=== PATIENT | female | born 1955 | race Caucasian/White ===

== ENCOUNTER 2022-02-03 07:32 | Outpatient (CLI) | payer BC, SELFPAY ==
[2022-02-03 11:32] LABS: Cholesterol* 223 mg/dL (90-199); HDL Cholesterol* 80 mg/dL (>=50); LDL Cholesterol Calculated 125 mg/dL (<100); Triglycerides* 90 mg/dL (40-149)
[2022-02-03 11:48] LABS: Vitamin D 25 Hydroxy* 41 ng/mL (30-80)
== END 2022-02-03 07:33 | disposition home or self-care (01) ==
LOC: NFLDREF 07:32
PROVIDERS: PCP Internal Medicine; Visit Provider Internal Medicine
DX: E78.5 Hyperlipidemia, unspecified (principal); M81.0 Age-related osteoporosis without current pathological fracture
CPT/HCPCS: 80061; 82306

== ENCOUNTER 2022-02-10 08:19 | Outpatient (CLI) | payer BC, SELFPAY | END 2022-02-10 08:20 | disposition home or self-care (01) | LOC: NFLDREF 08:19 | PROVIDERS: PCP Internal Medicine; Visit Provider Internal Medicine | DX: E78.5 Hyperlipidemia, unspecified (principal); M81.0 Age-related osteoporosis without current pathological fracture; Z12.4 Encounter for screening for malignant neoplasm of cervix | CPT/HCPCS: 87624; 88175 ==

== ENCOUNTER 2022-04-22 15:39 | Outpatient (CLI) | payer BC, SELFPAY ==
--- NOTE | 2022-04-22 15:40 | CRLHL7_ITS ---
For Patients: As a result of the Century Cures Act, medical imaging exams and procedure reports are released immediately into your electronic medical record. You may view this report before your referring provider. If you have questions, please contact your health care provider. BILATERAL SCREENING MAMMOGRAM WITH COMPUTER-AIDED DETECTION AND TOMOSYNTHESIS TECHNIQUE: CC and MLO views were obtained. These mammographic images have been obtained using full-field digital technique. These mammographic images were interpreted with the benefit of computer-aided detection. Breast Tomosynthesis was used in this interpretation. COMPARISON FILM: 04/19/2021, 06/01/2020, 02/26/2018. FINDINGS: The breasts are heterogeneously dense, which may obscure small masses IMPRESSION: There is no radiographic evidence for malignancy. ASSESSMENT: BI-RADS Category 1: Negative RECOMMENDATION: Routine screening mammogram in 1 year. A lay language report of this examination will be provided to the patient. Jonh Conn M.D. Diagnostic Radiologist [email or web address] KATERINA/[email or web address] Transcribed: 7:25 p.m. CALE/Dictated by: Jonh Conn MD @ 04/23/2022 11:29:00 AM (Electronically Signed)
--- OUTSIDE RECORDS SUMMARY | 2022-04-22 16:06 | XMS_ITS | Encounter Summary ---
:1955 Author Organization [facility] Address [address] [place] [address] Care Team Providers Name Role Phone Unavailable Primary Care Provider Unavailable Reason for Visit Reason Comments Appointment Pre-visit Testing Orders Encounter Details Date Type Department Care Team Description 07/12/2021 Clinical Department of Provider, Appointment; Communication Ophthalmology in Unknown Pre-visit Testing Monitor, [place] Orders [address] [place] [address] Social History Tobacco Use Types Packs/Day Years Used Date Smoking Tobacco: Never Alcohol Habits Answer Date Recorded How often do you have a drink containing alcohol? 2-3 times a week 02/28/2022 How many drinks containing alcohol do you have on a 1 or 2 02/28/2022 typical day when you are drinking? How often do you have six or more drinks on one Never 02/28/2022 occasion? Social Isolation Answer Date Recorded In a typical week, how many times do you Twice a week 02/28/2022 talk on the phone with family, friends, or neighbors? How often do you get together with friends Once a week 02/28/2022 or relatives? How often do you attend rastafarian or buddhist More than 4 time s per year 02/28/2022 services? Do you belong to any clubs or organizations Yes 02/28/2022 such as rastafarian groups, unions, fraternal or athletic groups, or school groups? How often do you attend meetings of the More than 4 times pe r year 02/28/2022 clubs or organizations you belong to? Are you now , , , 02/28/2022 , never or living with a partner? Physical Activity Answer Date Recorded On average, how many days per week do you engage in moderate to 6 days 02/28/2022 strenuous exercise (like walking fast, running, jogging, dancing, swimming, biking, or other activities that cause a light or heavy sweat)? On average, how many minutes do you engage in exercise at th is 30 min 02/28/2022 level? Stress Answer Date Recorded Do you feel stress - tense, restless, nervous, or Only a lit tle 02/28/2022 anxious, or unable to sleep at night because your mind is troubled all the time - these days? Financial Resource Strain Answer Date Recorded How hard is it for you to pay for the very basics like Not h ely at all 02/28/2022 food, housing, medical care, and heating? Intimate Partner Violence Answer Date Recorded Within the last year, have you been afraid of your partner o r No 02/28/2022 ex-partner? Within the last year, have you been humiliated or emotionall y No 02/28/2022 abused in other ways by your partner or ex-partner? Within the last year, have you been kicked, hit, slapped, or No 02/28/2022 otherwise physically hurt by your partner or ex-partner? Within the last year, have you been raped or forced to have any No 02/28/2022 kind of sexual activity by your partner or ex-partner? Food Insecurity Answer Date Recorded Within the past 12 months, you worried that your food would Never true 02/28/2022 run out before you got money to buy more. Within the past 12 months, the food you bought just didn't N ever true 02/28/2022 last and you didn't have money to get more. Transportation Needs Answer Date Recorded In the past 12 months, has lack of transportation kept you f rom No 02/28/2022 medical appointments or from getting medications? In the past 12 months, has lack of transportation kept you f rom No 02/28/2022 meetings, work, or getting things needed for daily living? Housing Stability Answer Date Recorded In the last 12 months, was there a time when you were not ab le No 02/28/2022 to pay the mortgage or rent on time? In the last 12 months, how many places have you lived? 1 02/28/2022 In the last 12 months, was there a time when you did not hav e a No 02/28/[address] or slept in a long term (including now)? Education Answer Date Recorded What is the highest level of school you have completed or th e Doctorate 01/06/2020 highest degree you have received? Sex Assigned at Date Recorded Female 01/06/2020 8:22 PM CDT documented as of this encounter Miscellaneous Notes Telephone Encounter - Salima Fernandez - 07/15/2021 3:23 PM CST Patient has been schedule I did call and left msg/sent portal msg. T RESPONDER Telephone Encounter - Fernanda Lino - 07/12/2021 5:01 PM CST Thank you Ammy. Not sure why this was not looked at sooner. Please advise who should see at this point. Thank you T RESPONDER Telephone Encounter - Ammy Silva - 07/12/2021 4:23 PM CST Yaquelin Eldridge, Dermatology had called us about this order and its been placed since January, not in our WQ- Only thing that had me concerned is the indication in the order. Thank you- Ammy T RESPONDER documented in this encounter Plan of Treatment Not on filedocumented as of this encounter Visit Diagnoses Not on filedocumented in this encounter
--- OUTSIDE RECORDS SUMMARY | 2022-04-22 16:06 | XMS_ITS | Encounter Summary ---
:1955 Author Organization [facility] Address [address] [place] [address] Care Team Providers Name Role Phone Unavailable Primary Care Provider Unavailable Reason for Visit Reason Comments Phone Contact Encounter Details Date Type Department Care Team Description 07/15/2021 Clinical Communication Department of Diana, Eufemia Montilla [facility] [place], [place] [address] [facility] [address] [place] [phone] Social History Tobacco Use Types Packs/Day Years [...] or relatives? How often do you attend religion or sikh More than 4 time s per year 02/28/2022 services? Do you belong to any clubs or organizations Yes 02/28/2022 such as religion groups, unions, fraternal or athletic groups, or [...] place to sleep or slept in a chcf (including now)? Education Answer Date Recorded What is the highest level of school you have completed or th e Doctorate 01/06/2020 highest degree you have received? Sex Assigned at Date Recorded Female 01/06/2020 8:22 PM CDT documented as of this encounter Miscellaneous Notes Telephone Encounter - Salima Fernandez - 07/15/2021 3:20 PM CST Please confirm patient appt for 09/10. documented in this encounter Plan of Treatment Not on filedocumented as of this encounter Visit Diagnoses Not on filedocumented in this encounter
--- OUTSIDE RECORDS SUMMARY | 2022-04-22 16:06 | XMS_ITS | Encounter Summary ---
:1955 Author Organization [facility] Address [address] [place] [address] Care Team Providers Name Role Phone Unavailable Primary Care Provider Unavailable Encounter Details Date Type Department Care Team Description 02/27/2020 Orders Only Department of Family Medicine, Unassigned , Pcp [facility], in [place], [place] [address] [place] [address] Social History Tobacco Use Types Packs/Day Years [...] or relatives? How often do you attend pentecostalism or muslim More than 4 time s per year 02/28/2022 services? Do you belong to any clubs or organizations Yes 02/28/2022 such as pentecostalism groups, unions, fraternal or athletic groups, or [...] place to sleep or slept in a alf (including now)? Education Answer Date Recorded What is the highest level of school you have completed or th e Doctorate 01/06/2020 highest degree you have received? Sex Assigned at Date Recorded Female 01/06/2020 8:22 PM CDT documented as of this encounter Plan of Treatment Not on filedocumented as of this encounter Visit Diagnoses Not on filedocumented in this encounter
--- OUTSIDE RECORDS SUMMARY | 2022-04-22 16:06 | XMS_ITS | Clinical Summary ---
:1955 Author Organization [facility] Address [address] [place] [address] Care Team Providers Name Role Phone Unavailable Primary Care Provider Unavailable Source Comments Patient records contain information from all sites at [facility]. For routine questions regarding patient records, call [phone] during business hours, M-F 8:00 AM - 5:00 PM Central Time. Record requests for emergency care only can be directed to [phone] at any time.[facility] Allergies Active Allergy Reactions Severity Noted Date Comments Acetaminophen Headache Medium 04/06/2017 Ampicillin Hives 01/31/2010 Hydrocodone Headache Medium 04/06/2017 Penicillin V Hives High 04/06/2017 Sulfa (Sulfonamide Other (see comments) High 01/31/2010 S evere adverse Antibiotics) reaction Medications Medication Sig Dispensed Refills Start Date End Date Status calcipotriene Apply 1 application 60 g 1 02/24/2020 Active (Dovonex) 0.005 % topically 2 (two) cream times a day as needed (Rash). For 4-7 days in combination with Efudex. fluorouraciL (EFUDEX) Apply 1 application 40 g 0 02/24/20 20 Active 5 % cream topically 2 (two) times a day. In combination with Dovonex for 4-7 days fexofenadine Take 1 tablet by 0 01/31/2010 Active (KINSEY) 180 mg mouth as needed. tablet calcium Take 1 tablet by 0 01/31/2010 Ac tive carbonate/vitamin D3 mouth 3 (three) (CALCIUM 500 + D times a day. ORAL) alendronate (FOSAMAX) Take 1 tablet by 0 03/05/2021 Active 70 mg tablet mouth daily. ibuprofen Take 1 tablet by 0 Act serene (ADVIL,MOTRIN) 200 mg mouth as needed. tablet simvastatin (ZOCOR) Take 10 mg by mouth 0 02/17/2019 Active 10 mg tablet at bedtime. Encounters Date Type Specialty Care Team Description 02/28/2022 Office Visit Dermatology Jaimee Luz Nev corine Multiple (Primary Dx); M.B.B.S. Dermatoheliosis ; Acrochordon from Last 3 Months Social History Tobacco Use Types Packs/Day Years [...] or relatives? How often do you attend episcopal or oriental orthodox More than 4 time s per year 02/28/2022 services? Do you belong to any clubs or organizations Yes 02/28/2022 such as episcopal groups, unions, fraternal or athletic groups, or [...] place to sleep or slept in a fci (including now)? Education Answer Date Recorded What is the highest level of school you have completed or th e Doctorate 01/06/2020 highest degree you have received? Sex Assigned at Date Recorded Female 01/06/2020 8:22 PM CDT Plan of Treatment Health Maintenance Due Date Last Done Comments Bone Density Scan (Osteoporosis 1955 Screen) CT Colonography 1955 Cologuard 1955 Colonoscopy 1955 Colorectal Cancer Screening 1955 FIT 1955 Fasting Glucose for Diabetes 1955 Screening HIV Screening 1955 Hepatitis C Screening 1955 Mammogram 1955 Depression Screening (Annual 06/29/2021 PHQ-2) COVID-19 Vaccine (5 - Booster for 12/27/2021 11/01/2021, , Pfizer series) 10/23/2020, Additional history exists Pneumococcal vaccine (65+ years) 02/10/2023 02/10/2022 (2 - PPSV23 if available, else PCV20) Cervical Cancer Screening 02/10/2025 02/10/2022 DTaP,Tdap,and Td Vaccines (2 - Td 02/12/2027 02/12/2017 or Tdap) Zoster Vaccines Completed 05/31/2020, 02/06/2020, 02/12/2017 Fall Risk Screen (Annual) Completed 09/10/2021 Influenza Vaccine Completed 04/09/2022, 04/11/2021, 04/12/2020, Additional history exists Insurance Payer Benefit Plan Subscriber ID Effective Dates Phone Address Type / Group [employer] [facility] [id number] 2019-Ben [phone] [address] [address] PPO [facility] [address] [place] [address]
--- OUTSIDE RECORDS SUMMARY | 2022-04-22 16:06 | XMS_ITS | Encounter Summary ---
:1955 Author Organization [facility] Address [address] [place] [address] Care Team Providers Name Role Phone Unavailable Primary Care Provider Unavailable Reason for Visit Reason Comments COVID Nurse Line Encounter Details Date Type Department Care Team Description 12/02/2019 Clinical Communication Department of LUZ Cooper Nurse Line Dermatology in [place], [place] [address] [place] [address] Social History Tobacco Use Types Packs/Day Years [...] or relatives? How often do you attend denominational or anabaptism More than 4 time s per year 02/28/2022 services? Do you belong to any clubs or organizations Yes 02/28/2022 such as denominational groups, unions, fraternal or athletic groups, or [...] place to sleep or slept in a half-way (including now)? Sex Assigned at Date Recorded Female 01/06/2020 8:22 PM CDT documented as of this encounter Miscellaneous Notes Telephone Encounter - Yi Doran - 12/02/2019 2:46 PM CDT In the past 30 days have you had a swab for COVID that tested positive? no Route reply to: Scheduling Contact Number: {Dept Phone Number documented in this encounter Plan of Treatment Not on filedocumented as of this encounter Visit Diagnoses Not on filedocumented in this encounter
--- OUTSIDE RECORDS SUMMARY | 2022-04-22 16:06 | XMS_ITS | Encounter Summary ---
:1955 Author Organization [facility] Address [address] [place] [address] Care Team Providers Name Role Phone Unavailable Primary Care Provider Unavailable Encounter Details Date Type Department Care Team Description 02/05/2021 Ancillary Procedure Department of Dermatology Social History Tobacco Use Types Packs/Day Years [...] or relatives? How often do you attend restorationist or worship More than 4 time s per year 02/28/2022 services? Do you belong to any clubs or organizations Yes 02/28/2022 such as restorationist groups, unions, fraternal or athletic groups, or [...] or slept in a half-way (including now)? Education Answer Date Recorded What is the highest level of school you have completed or th e Doctorate 01/06/2020 highest degree you have received? Sex Assigned at Date Recorded Female 01/06/2020 8:22 PM CDT documented as of this encounter Plan of Treatment Not on filedocumented as of this encounter Procedures Procedure Name Priority Date/Time Associated Comments Diagnosis DERMATOLOGY IMAGE Routine 02/05/2021 12:00 Result s for this EXAM AM CDT procedure are i n the results section. documented in this encounter Results Eyes-Dermatology Image Exam (02/05/2021 12:00 AM CDT) Specimen (Source) Anatomical Location Collection Method / Collectio n Time Received Time / Laterality Volume Narrative IIMS - 02/05/2021 2:57 PM CDT This order has been created and auto-finalized to support the import of images acquired without order. The clini natalya documentation to support these images can be found on the encounter delilah t produced images. Provider Not In System IMG NON RAD IMAGING PROCEDUR ES Performing Organization Address City/State/ZIP Code Phon e Number IIMS IIMS NA documented in this encounter Visit Diagnoses Not on filedocumented in this encounter
--- OUTSIDE RECORDS SUMMARY | 2022-04-22 16:06 | XMS_ITS | Encounter Summary ---
:1955 Author Organization [facility] Address [address] [place] [address] Care Team Providers Name Role Phone Unavailable Primary Care Provider Unavailable Reason for Visit Reason Comments COVID Inquiry Encounter Details Date Type Department Care Team Description 01/10/2020 Clinical Communication Department of Oscar Napoles COV ID Inquiry Dermatology in [place]. [place], [place] [address] [place] [address] Social History Tobacco Use Types Packs/Day Years [...] or relatives? How often do you attend worship or faith More than 4 time s per year 02/28/2022 services? Do you belong to any clubs or organizations Yes 02/28/2022 such as worship groups, unions, fraternal or athletic groups, or [...] place to sleep or slept in a halfway (including now)? Education Answer Date Recorded What is the highest level of school you have completed or th e Doctorate 01/06/2020 highest degree you have received? Sex Assigned at Date Recorded Female 01/06/2020 8:22 PM CDT documented as of this encounter Miscellaneous Notes Telephone Encounter - Isa Perez - 01/10/2020 12:58 PM CDT ([facility] and [facility] locations only: If the patient is not having symptoms and is requesting COVID-19 Nasal Swab testing only, use the process listed in the COVID-19 Patient Requesting COVID PCR Test OTG COVID-19 [place] Patient Requesting COVID PCR Test). 1. Do you have a pending COVID test because you had symptoms or exposure to someone with COVID or you have tested positive for COVID in the last 30 days? no 2. In the past 14 days, do you, anyone in the household, or anyone you have had prolonged exposure have any of the following? a. Fever greater than or equal to 37.8 C (100.0 F)? no b. New symptoms (Specifically: headache, cough, shortness of breath, respiratory distress, sore throat, diarrhea, nausea, vomiting, chills and repeated shaking with chills, myalgia's (muscle aches), loss of smell, or change or loss of taste sensation)? no c. Had close contact with a patient with known or possible COVID-19 in the last 14 days? no Route reply to: kathy wilde desk Scheduling Contact Number: [phone] documented in this encounter Plan of Treatment Not on filedocumented as of this encounter Visit Diagnoses Not on filedocumented in this encounter
--- OUTSIDE RECORDS SUMMARY | 2022-04-22 16:06 | XMS_ITS | Clinical Summary ---
:1955 Author Organization [facility] [place] [address] Care Team Providers Name Role Phone Clinic, No Pcp Or Primary Care Provider Unavailable Allergies Active Allergy Reactions Severity Noted Date Comments Ampicillin Hives 03/06/2021 Sulfa (Sulfonamide Other - Describe In 03/06/2021 Se kapil adverse Antibiotics) Comment Field reaction Medications Medication Sig Dispensed Refills Start Date End Date Status simvastatin (ZOCOR) 10 Take 10 mg by 0 01/24/2021 Active mg tablet mouth at bedtime. alendronate (FOSAMAX) Take 1 Tablet by 0 03/05/2021 Active 70 mg tablet mouth once a week in the morning. Active Problems Not on file Encounters Date Type Specialty Care Team Description 02/10/2022 Lab Requisition Bruna Brooks MD from Last 3 Months Family History Medical History Relation Name Comments Other Father neurological dis order Hyperlipidemia Mother Hypertension Mother Relation Name Status Comments Father Alive Mother Social History Tobacco Use Types Packs/Day Years Used Date Never Smoker Smokeless Tobacco: Never Used Tobacco Cessation: Counseling Given: Yes Sex Assigned at Date Recorded Not on file Obstetrics History Last Filed Vital Signs Vital Sign Reading Time Taken Comments Blood Pressure 98/65 03/06/2021 1:41 PM CDT tower Pulse 80 03/06/2021 1:41 PM CDT Temperature - - Respiratory Rate - - Oxygen Saturation 97% 03/06/2021 1:41 PM CDT Inhaled Oxygen Concentration - - Weight 56.2 kg (124 lb) 03/06/2021 1:41 PM CDT Height - - Body Mass Index - - Plan of Treatment Health Maintenance Due Date Last Done Comments COVID-19 vaccine series (#1) 1955 Tdap 01/21/1968 Depression screening for age 12+ 1969 BMI (ht and wt on same day) for 1975 age 18+ Hepatitis C screening for age 0701/20/1975 18-79 Tetanus booster 1977 Colonoscopy through age 75 2002 Lipids for age 45-75 2002 Mammogram for age 45-75 2002 Zoster (shingles) series for age 0701/20/2007 50+ (1 of 2) DEXA/DXA scan for age 65+ 2022 Pneumococcal series for age 65+ (1 2022 - PCV) Influenza for age 65+ 02/27/2022 Pap test for age 21-65 02/10/2025 02/10/2022, 02/10/2022, 02/12/2017, Additional history exists Procedures Procedure Name Priority Date/Time Associated Diagnosis Comme nts LAB TRACKING EVENT Routine 02/10/2022 8:30 AM CDT HEARING CARE PROFESSIONAL THIN PREP PAP Routine 02/10/2022 8:30 AM Resu lts for this SCREEN IMAGED CDT procedure are in the results section. HPV THIN PREP Routine 02/10/2022 8:30 AM Results for this CDT procedure are i n the results section. from Last 3 Months Results LAB TRACKING EVENT (02/10/2022 8:30 AM CDT) Specimen Anatomical Collection Method Collection Time Receive d Time (Source) Location / / Volume Laterality Other (Other) Client Collect / 02/10/2022 8:30 AM 01/27 4:30 Unknown CDT PM CDT Bruna Brooks MD LAB BILL ONLY Performing Organization Address City/State/ZIP Code Phon e Number [facility] [address] [place] [address] LABORATORY-CENTRAL 2000 LABORATORY HEARING CARE PROFESSIONAL THIN PREP PAP SCREEN IMAGED (02/10/2022 8:30 AM CDT) Component Value Ref Test Analysis Performed At [facility] Range Method Time Signature Case Report Gynecologic Cytology Report ? Case: [id number] ? 02/24/2022 DONTE Authorizing Provider: ??Helg en, Bruna E, MD ?Collected: ? 02/10/2022 0830 ? 5:06 PM HEALTH Ordering Location: ? [facility] CENTRAL LAB ?Received: ?02/10/2022 1757 ? CDT [place] BORATORY-C First Screen: ? Emanuel Mcwilliams ? ENTRAL Rescreen: ?Denise Vlilalpando ? LABORATORY Specimen: ?HEARING CARE PROFESSIONAL ThinPrep Vial Screening, Cervical ? INTERPRETATI NEGATIVE FOR (none) 02/24/2022 [facility] Yulia ctronically ON/RESULT INTRAEPITHELIAL 5:06 PM HEALTH sign ed by LESION OR CDT LABORATORY-C Denise Villalpando on MALIGNANCY (NIL) ENTRAL 01/28 at LABORATORY 5:06 PM SPECIMEN Satisfactory for evaluation 02/24/2022 A [facility] ADEQUACY Endocervical cells cannot be evaluated due to severe atrop hy 5:06 PM HEALTH Scant cellularity CDT LABORATORY-C ENTRAL LABORATORY HPV REQUEST HPV and PAP 02/24/2022 [facility] 5:06 PM HEALTH CDT LABORATORY-C ENTRAL LABORATORY Last Pap 02/12/2017 02/24/2022 [facility] Date 5:06 PM HEALTH CDT LABORATORY-C ENTRAL LABORATORY Last Pap 02/24/2022 [facility] Result 5:06 PM HEALTH T LABORATORY-C ENTRAL LABORATORY Comment: normal Abnormal Pap or [place] No 02/24/2022 5:06 PM [facility] Bx in last 5 years CDT LABORATORY- CENTRAL LABORATORY Menstrual Status Postmenopausal 02/24/2022 5:06 PM [facility] [place] Bx Done Today No 02/24/2022 5:06 PM [facility]ORY Additional 02/24/2022 5:06 PM [facility] Information T LABORATORY-CENTRAL LABORATORY Comment: Interpreted at [facility], Central Laboratory - [address], [place] [address] Automated Review Successful 02/24/2022 5:06 PM T [facility] LABORATORY-CENTRAL L ABORATORY Comment: Specimen processed successfully by automated underpresser hand device, SpectralmindPrep Imaging System, [employer] ANCILLARY TESTING HPV Ordered, 02/24/2022 5:06 PM [facility] HEARING CARE PROFESSIONAL Please see T LABORATORY-CENTRAL separate report LABORATORY Note The pap test is a 02/24/2022 5:06 PM [place] [facility] screening T LABORATORY-CENTRAL technique, not a LABORATORY diagnostic procedure. It is used primarily to screen for squamous cancers and precursor lesions. Published studies have shown that it is subject to both false negative and false positive results. The pap test should not be used as the sole means to diagnose or exclude pre-malignant and malignant lesions. Specimen Anatomical Collection Method Collection Time Receive d Time (Source) Location / / Volume Laterality Other (Cervical) 02/10/2022 8:30 AM 02/10 5:57 CDT PM CDT Bruna Brooks MD PATHOLOGY/CYTOLOGY Performing Organization Address City/State/ZIP Code Phon e Number [facility] [address] [place] [address] LABORATORY-CENTRAL 2000 LABORATORY HPV HIGH RISK (02/10/2022 8:30 AM CDT) Analysis Performed At [facility] logist Time Signature TYPE 16 Negative Negative 02/12/2022 [facility] 3:10 PM CDT LABORATORY-ANGEL TRAL LABORATORY TYPE 18 Negative Negative 02/12/2022 [facility] 3:10 PM CDT LABORATORY-ANGEL TRAL LABORATORY OTHER HIGH Negative Negative 02/12/2022 [facility] RISK TYPES 3:10 PM CDT LABORATORY-ANGEL TRAL LABORATORY Specimen Anatomical Collection Method Collection Time Receive d Time (Source) Location / / Volume Laterality Other (Cervical) 02/10/2022 8:30 AM 02/10 5:57 CDT PM CDT Narrative [facility] LABORATORY-CENTRAL LABORAT ORY - 02/12/2022 3:10 PM CDT HPV types 16, 18, 31, 33, 35, 39, 45, 51, 52, 56, 58, 59, 66 and 68 DNA were undetectable or below the pre-set threshold. Methodology: Talk[employer] 4800 HPV Test Bruna Brooks MD MICROBIOLOGY Performing Organization Address City/State/ZIP Code Phon e Number [facility] [address] 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
--- OUTSIDE RECORDS SUMMARY | 2022-04-22 16:06 | XMS_ITS | Encounter Summary ---
:1955 Author Organization [facility] Address [address] [place] [address] Care Team Providers Name Role Phone Unavailable Primary Care Provider Unavailable Reason for Referral Medication Prior Authorization (Routine) - Closed Specialty Diagnoses / Procedures Referred By Contact Refer red To Contact Brisa Thompson M.D. [address] [place] [phone] Referral ID Status Reason Start Date Expiration Date Visits Requ ested Visits Authorized [id number] Closed 1 1 Reason for Visit Outpatient (Routine) - Closed Specialty Diagnoses / Procedures Referred By Contact Refer jo-ann To Contact Dermatology Jonh Underwood M.D . [facility] [address] [place] [phone] Referral ID Status Reason Start Date Expiration Date Visits Requ ested Visits Authorized [id number] Closed 01/11/2020 01/10/2021 1 1 Encounter Details Date Type Department Care Team Description 02/24/2020 Office Visit Department of Brisa Thompson Keratosis Actinic Dermatology edward Estrada M.D. (Primary Dx) [place], [place] [address] [place] [address] [place] [phone] Social History Tobacco Use Types Packs/Day Years [...] or relatives? How often do you attend scientology or druze More than 4 time s per year 02/28/2022 services? Do you belong to any clubs or organizations Yes 02/28/2022 such as scientology groups, unions, fraternal or athletic groups, or [...] PM CDT documented as of this encounter Progress Notes Brisa Reyes M.D. - 02/24/2020 4:20 PM CDT Supervised by: Dr. who evaluated the patient and concurs with the assessment and plan. Correspondence to Dr. 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 This is not particularly symptomatic, but it does not seem to go away and remains red. She has noted also noted that this has been getting bigger over time. Patient was last seen by Dr. Napoles on January 11, 2020 for the same concern and for full skin check which was benign per the note. Allergies not on file REVIEW OF SYSTEMS The patient denies unintended weight loss, fevers, chills, night sweats, headache, cough. PAST MEDICAL HISTORY Per HPI FAMILY HISTORY No history of skin cancer PHYSICAL EXAM General: Awake, alert, in no acute distress, and with appropriate affect. Skin: Limited skin exam was done today by patient request. I have examined the face Involving the right cheek is an erythematous macule likely actinic keratosis versus seborrheic keratosis ASSESSMENT / PLAN #1 History of nonmelanoma skin cancer #2 Actinic keratosis on right cheek Recommended a trial of Efudex 5% cream in combination with Dovonex 0.005% apply on the lesion 2 times daily for 4 to 7 days. Patient was advised to contact us with any concerns. If this lesion does not respond to treatment will consider liquid nitrogen cryotherapy. All questions answered. INFORMED CONSENT Discussed the risks, benefits, alternatives, and the necessity of other members of the healthcare team participating in the procedure. All questions answered and consent given. PATIENT EDUCATION Ready to learn. No apparent learning barriers were identified. Learning preferences include listening. Explained diagnosis and treatment plan; patient/guardian of patient expressed understanding of thecontent. Associated attestation - Gauri Castellano M.D. - 02/24/2020 5:06 PM CDT I saw and evaluated the patient, participating in the chinchilla portions of the service. I reviewed the resident/fellow???s note. I agree with the resident/fellow???s findings and plan. documented in this encounter Plan of Treatment Not on filedocumented as of this encounter Visit Diagnoses Diagnosis Keratosis Actinic - Primary documented in this encounter
--- OUTSIDE RECORDS SUMMARY | 2022-04-22 16:06 | XMS_ITS | Encounter Summary ---
:1955 Author Organization [facility] Address [address] [place] [address] Care Team Providers Name Role Phone Unavailable Primary Care Provider Unavailable Reason for Referral Outpatient (Routine) - Closed Specialty Diagnoses / Procedures Referred By Contact Marissa busch To Contact Dermatology Jonh Underwood M.D . [facility] [address] [place] [address] Referral ID Status Reason Start Date Expiration Date Visits Requ ested Visits Authorized [id number] Closed 01/11/2020 01/10/2021 1 1 Reason for Visit Appointment Request (Routine) - Closed Specialty Diagnoses / Procedures Referred By Contact Marissa busch To Contact Dermatology Diagnoses Screening Examination Skin Cancer Lesion Skin Face Referral ID Status Reason Start Date Expiration Date Visits Requ ested Visits Authorized [id number] Closed 12/02/2019 12/01/2020 1 1 Encounter Details Date Type Department Care Team Description 01/11/2020 Comprehensive Visit Department of Oscar Napoles Kerateleuterio sis Actinic (Primary Dx); Dermatology edward Rosales M.D. Personal Hist ory Of Other Malignant Neoplasm Of Skin; [place], [place] Nevi Multiple; [address] [place] [phone] Social History Tobacco Use Types Packs/Day Years [...] or relatives? How often do you attend alevism or yarsani More than 4 time s per year 02/28/2022 services? Do you belong to any clubs or organizations Yes 02/28/2022 such as alevism groups, unions, fraternal or athletic groups, or [...] place to sleep or slept in a [place] [facility] [place] (including now)? Education Answer Date Recorded What is the highest level of school you have completed or th e Doctorate 01/06/2020 highest degree you have received? Sex Assigned at Date Recorded Female 01/06/2020 8:22 PM CDT documented as of this encounter Consult Notes Oscar Napoles M.D. - 01/11/2020 4:20 PM CDT CORRESPONDENCE TO: Oscar Napoles M.D. Supervised by: Dr. Jonh Underwood. Supervising senior billing consultant, Dr. Jonh Underwood, was immediately available, but consultation was not required. Correspondence to myself. REFERRED BY: No referring provider defined for this encounter. CHIEF COMPLAINT History of NMSC, crusted spot on right cheek HISTORY OF PRESENT ILLNESS Dr. New is a 64 y.o. female with a personal history of basal cell carcinoma on her scalp who presents today for a recurrently scaly spot on her right cheek. This is not particularly symptomatic, butit does not seem to go away and remains red. No other cutaneous concerns today. 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 PAST MEDICAL/SURGICAL HISTORY Reviewed PHYSICAL EXAM General: Awake, alert, in no acute distress, and with appropriate affect. Eyes: No eyelid abnormalities. No scleral injection. Skin: Full skin examination of the head, ears, nose, neck, chest, abdomen, back, buttocks, upper extremities, lower extremities, hands, feet, digits and nails was performed per patient's request. Well-healed, atrophic scar on the midline scalp without evidence of recurrence. On the right cheek is a thin, red, scaly papule without significant induration. Scattered on the trunk and extremities, are occasional light to dark brown macules and papules varying in size from 0.2- cm to 0.5-cm with regular borders, symmetry, and reassuring pigment patterns under dermoscopy, as well as scattered red, dome-shaped papules on the trunk and extremities. ASSESSMENT AND PLAN #1 History of NMSC #2 Actinic keratosis on right cheek Full body skin check performed today, no lesions concerning for malignancy identified today. No evidence of recurrence at [facility] on midline scalp. 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 She will return to clinic for freezing of the actinic keratosis in about 1 month. #3 Seborrheic keratoses #4 Lorenzo angiomas #5 Nevi multiple The benign nature of the skin lesion(s) was discussed with the patient. No treatment is required. All questions were answered. PATIENT EDUCATION Ready to learn. No apparent learning barriers were identified. Learning preferences include listening. Explained diagnosis and treatment plan; patient/guardian of patient expressed understanding of thecontent. documented in this encounter Plan of Treatment Scheduled Referrals Name Type Priority Associated Order Schedule Diagnoses Dermatology office Outpatient Referral Routine Ex pected: visit (clinic) 02/11/2020 (Approximate), Expires: 01/10/2023 documented as of this encounter Visit Diagnoses Diagnosis Keratosis Actinic - Primary Personal History Of Other Malignant Neop lasm Of Skin Nevi Multiple Angioma Lorenzo documented in this encounter
--- OUTSIDE RECORDS SUMMARY | 2022-04-22 16:06 | XMS_ITS | Encounter Summary ---
:1955 Author Organization [facility] Address [address] [place] [address] Care Team Providers Name Role Phone Unavailable Primary Care Provider Unavailable Reason for Referral Outpatient (Routine) - Closed Specialty Diagnoses / Procedures Referred By Contact Refer red To Contact Ophthalmology Diagnoses Tumor Skin Uncertain Behavior Farooq Paulson M.D. [facility] Referral ID Status Reason Start Date Expiration Date Visits Requ ested Visits Authorized [id number] Closed 02/05/2021 02/05/2022 1 1 Reason for Visit Appointment Request (Routine) - Incomplete Specialty Diagnoses / Procedures Referred By Contact Refer red To Contact Referral ID Status Reason Start Date Expiration Date Visits V isits Requested Authorized [id number] Incomplete 12/24/2020 12/24/2021 1 1 Encounter Details Date Type Department Care Team Description 02/05/2021 Office Visit Department of Farooq Paulson, Tumor Skin Un certain Behavior (Primary Dx); Dermatology in [place]; [place], [place] Telangiectasia; [address] [employer]; [place], [place] Personal Histo ry Of Other Malignant Neoplasm Of Skin [phone] Social History Tobacco Use Types Packs/Day [...] or relatives? How often do you attend hindu or presybeterian More than 4 time s per year 02/28/2022 services? Do you belong to any clubs or organizations Yes 02/28/2022 such as hindu groups, unions, fraternal or athletic groups, or [...] place to sleep or slept in a detention (including now)? Education Answer Date Recorded What is the highest level of school you have completed or th e Doctorate 01/06/2020 highest degree you have received? Sex Assigned at Date Recorded Female 01/06/2020 8:22 PM CDT documented as of this encounter Consult Notes Farooq Paulson M.D. - 02/05/2021 8:20 AM CDT DERMATOLOGY CLINIC Supervised by: Dr. Ashby Patient seen and discussed with supervising oracle database consultant, Dr. Ashby, who evaluated the patient and concurs with the assessment and plan. Correspondence to Dr. Paulson. CHIEF COMPLAINT / REASON FOR VISIT lesion HISTORY OF PRESENT ILLNESS Ms. Bianca New is a 66 y.o. female who has a history of nonmelanoma skin cancer. The patient was last seen in Dermatology January 2020 for treatment of actinic keratosis with Efudex and Dovonex Today Ms. New notes a lesion on her right inner eyelid margin that has been present for approximately 2 years and has been increasing in size. Has not been biopsied or treated before. Additionally, the patient notes increased blood vessels on her cheeks and nose and on her lower extremities that she wishes to discuss further management therapies for. Otherwise the patient denies other new, changing, painful, or itching skin lesions. . PAST MEDICAL HISTORY reviewed Not on File PHYSICAL EXAM General: Well appearing and in no acute distress. Skin: I have examined the scalp, face, neck, chest, abdomen, back, bilateral upper extremities, bilateral lower extremities, and buttocks. Exam is notable for the following: Jaffe type II skin. Scattered on the trunk and extremities are several brown to dark brown pigmented macules of varying size, uniform color and pigmentation. Several of these were examined under dermoscopy revealing benign pigment morphology. At the right inner upper eyelid margin, small skin tone papule with overlying telangiectasias. Scattered on her cheeks uniformly light red base with scattered telangiectasias. Small prominent telangiectasias on her bilateral lower extremities ASSESSMENT / PLAN #1 Skin tone papule with overlying telangiectasias, right inner upper eyelid margin Given the direct proximity to the cornea, we recommended for the patient to be seen by Oculoplasticsfor further evaluation and consideration of biopsy given that the lesion has been increasing in sizeover the last 2 years. A referral order was placed #2 Dermatoheliosis #3 History of nonmelanoma skin cancer No worrisome findings for skin cancer today. Recommend sun protection, sun avoidance, and monthly skin self-examination. The warning signs and symptoms of skin cancer and proper use of sunscreens discussed. Recommend a full skin cancer screening examination with an appropriately trained clinician every year. #4 Multiple benign appearing nevi None of the patient's nevi reach the clinical threshold for biopsy. Recommend continued sun protection, self-skin examinations, and observation. Should any of the patient's nevi change in size, color, texture, or shape or develop symptoms such as itching or bleeding, recommend an immediate return visit for reassessment. #5 Erythematotelangiectatic (vascular) rosacea Mrs. New has telangiectasias scattered within her baseline underlying rosacea that she wishes to have treated. I reviewed treatment with PDL of targeted telangiectasias versus diffuse underlying erythema from rosacea. I reviewed the associated cost. The patient will reach out to me in the future ifshe wished to proceed with treatment #5 Spider veins, bilateral lower extremities Mrs. New endorses many year history spider veins that have been asymptomatic. She denies lower extremity edema and does not have any large prominent vessels on exam. She has not had any treatments for her veins before in the past. I reviewed with her that the most likely treatment would be proceeding with sclerotherapy and recommended a referral to our vein clinic for further evaluation. The patient wishes to first to see with the cost is sclerotherapy with our business office and will reach out to me in the future if she wishes to proceed with further management. The patient expresses understanding and is in agreement with the plan. All questions were answered to the best of my ability. It was a pleasure seeing Ms. Bianca Nuñez Sortor today. Farooq Paulson M.D. Associated attestation - Meliza Ashby M.D. - 02/05/2021 9:52 AM CDT I saw and evaluated the patient, participating in the chinchilla portions of the service. I reviewed the resident???s note. I agree with the resident???s findings and plan. Meliza Ashby M.D. documented in this encounter Plan of Treatment Scheduled Referrals Name Type Priority Associated Order Schedule Diagnoses Ophthalmology - Outpatient Referral Routine Tumor Skin Expec olga: Oculoplastic and Uncertain Behavior 02/05 orbital surgery (Approximate ), consult (clinic) Expires: 02/06/2024 documented as of this encounter Visit Diagnoses Diagnosis Tumor Skin Uncertain Behavior - Primary Rosacea Telangiectasia [place] Personal History Of Other Malignant Neop lasm Of Skin documented in this encounter
--- OUTSIDE RECORDS SUMMARY | 2022-04-22 16:06 | XMS_ITS | Encounter Summary ---
:1955 Author Organization [facility] Address [address] [place] [address] Care Team Providers Name Role Phone Unavailable Primary Care Provider Unavailable Reason for Visit Appointment Request (Routine) - Closed Specialty Diagnoses / Procedures Referred By Contact Refer red To Contact Dermatology Diagnoses Screening Examination Skin Cancer Referral ID Status Reason Start Date Expiration Date Visits Requ ested Visits Authorized [id number] Closed 01/03/2022 01/03/2023 1 1 Encounter Details Date Type Department Care Team Description 02/28/2022 Office Visit Department of Malinda Luz (Primary Dx); Dermatology in [facility]; [place], [place] [address] [facility] [address] [place] [id number] [phone] Social History Tobacco Use Types Packs/Day Years [...] or relatives? How often do you attend sikhism or roman catholic More than 4 time s per year 02/28/2022 services? Do you belong to any clubs or organizations Yes 02/28/2022 such as sikhism groups, unions, fraternal or athletic groups, or [...] minutes do you engage in exercise at is 30 min 02/28/2022 level? Stress Answer [...] place to sleep or slept in a penitentiary (including now)? Education Answer Date Recorded What is the highest level of school you have completed or e Doctorate 01/06/2020 highest degree you have received? Sex Assigned at Date Recorded Female 01/06/2020 8:22 PM CDT documented as of this encounter Consult Notes Jaimee Luz M.B.B.SGiselle - 02/28/2022 11:20 AM CDT CORRESPONDENCE TO: Dr. Felipe Mishra Super[employer] Dr. Girard was immediately available for consultation but consultation was not required. REFERRED BY: No referring provider defined for this encounter. CHIEF COMPLAINT H/o NMSC HISTORY OF PRESENT ILLNESS Ms. New is a very pleasant 67 y.o. lady from [place], [place] presenting today for a TBSE. She has a prior history of a basal cell carcinoma on her scalp treated in approximately 2002. She was last seen in Dermatology in January 2021 when she was referred to ocular plastics for a growth on her right inner eyelid. This has been evaluated by Oculoplastics and they feel this will benign spot that can beobserved. Today, she has noticed a raised itchy spot on her right lateral neck. It does not bleed spontaneously. She denies any other spots are itching, bleeding, tender, rapidly changing in size or color. She tries to be diligent with sun protection. PAST MEDICAL/SURGICAL HISTORY No past medical history on file. SOCIAL HISTORY [facility] PHYSICAL EXAM General: Awake, alert, in no acute distress, and with appropriate affect. Eyes: No eyelid abnormalities. No scleral injection. Skin: Full skin examination of the head, neck, chest, abdomen, back, upper extremities, hands, fingers, lower extremities, feet, and toes was performed per patient's request. There are multiple becerra-colored macules and papules measuring less than 0.6 cm in size with regular borders symmetric appearance and even pigmentation consistent with banal appearing nevi. On the rightlateral neck there is a flesh- colored pedunculated papule consistent with irritated acrochordon. On the vertex scalp there is red color lobules on the vertex scalp consistent with angioma measuring about 1.6 and 1.1 cm. Assessment and Plan # History of NMSC No signs of recurrence #Skin cancer screening examination # Dermatoheliosis No worrisome findings for skin cancer today. Sun protection and sun avoidance were reviewed with thepatient. Educational materials were provided regarding skin self-examination, the warning signs and symptoms of skin cancer, and the proper use of sunscreens. I would recommend a full skin cancer screening examination with an appropriately trained clinician every year. SUNSCREEN RECOMMENDATIONS: 1. Use SPF 30 or greater sunscreen with broad-spectrum coverage, we recommend looking for zinc or titanium oxide in the ingredients 2. Reapply every 2 hours or after exiting the water. 3. Use a daily sunscreen which can often be found in a daily moisturizer or foundation. 4. A shot-glass amount of sunscreen is needed to attain proper coverage for one full-body application. 5. A broad brimmed hat and UPF clothing (ie: Coolibar) is a great way to protect your skin from the sun. # Banal-appearing nevi The ABCDE criteria for melanoma was reviewed with the patient. None of the patient's nevi reach the clinical threshold for biopsy. I recommend continued sun protection, self-skin examinations, and observation. Should any of the patient's nevi change in size, color, texture, or shape or develop symptoms such as itching or bleeding, I recommend an immediate return visit for reassessment. #Irritated acrochordon The benign nature of this lesion(s) was discussed with the patient. Given the inflamed nature of this lesion(s), its treatment is medically indicated. We treated a total of 1 lesion(s) with one 20-second freeze-thaw cycle of liquid nitrogen cryotherapy. The patient tolerated the procedure well. Aftercare instructions were provided in written and verbal form to the patient. Should any of these lesionsrecur, the patient should return for further evaluation. # Angioma vertex scalp Benign, reassured. If it changes in texture or become symptomatic, recommend re-evaluation. All questions answered. documented in this encounter Plan of Treatment Not on filedocumented as of this encounter Visit Diagnoses Diagnosis Nevi Multiple - Primary Dermatoheliosis Acrochordon documented in this encounter
--- OUTSIDE RECORDS SUMMARY | 2022-04-22 16:06 | XMS_ITS | Encounter Summary ---
:1955 Author Organization [facility] Address [address] [place] [id number] Care Team Providers Name Role Phone Unavailable Primary Care Provider Unavailable Reason for Visit Reason Comments Eyelid Lesion Outpatient (Routine) - Closed Specialty Diagnoses / Procedures Referred By Contact Refer red To Contact Ophthalmology Diagnoses Tumor Skin Uncertain Behavior Farooq Paulson M.D. [facility] Referral ID Status Reason Start Date Expiration Date Visits Requ ested Visits Authorized [id number] Closed 02/05/2021 02/05/2022 1 1 Encounter Details Date Type Department Care Team Description 09/10/2021 Procedure visit Department of [place], Matt Constantino [facility] in [place]. Right Upper Eyelid [place], [place] [address] [facility] [address] [place] [phone] Social History Tobacco Use Types Packs/Day Years [...] or relatives? How often do you attend gnosticist or roman catholic More than 4 time s per year 02/28/2022 services? Do you belong to any clubs or organizations Yes 02/28/2022 such as gnosticist groups, unions, fraternal or athletic groups, or [...] place to sleep or slept in a care home (including now)? Education Answer Date Recorded What is the highest level of school you have completed or e Doctorate 01/06/2020 highest degree you have received? Sex Assigned at Date Recorded Female 01/06/2020 8:22 PM CDT documented as of this encounter Progress Notes Matt Ortiz M.D. 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 Return prn if any changes documented in this encounter Plan of Treatment Not on filedocumented as of this encounter Visit Diagnoses Diagnosis Vascular Anomalies Right Upper Eyelid documented in this encounter
--- OUTSIDE RECORDS SUMMARY | 2022-04-22 16:06 | XMS_ITS | Encounter Summary ---
:1955 Author Organization [facility] Address [address] [place] [address] Care Team Providers Name Role Phone Unavailable Primary Care Provider Unavailable Encounter Details Date Type Department Care Team Description 09/10/2021 Ancillary Procedure Department of Ophthalmology Social History Tobacco Use Types Packs/Day Years [...] or relatives? How often do you attend mu-ism or restoration More than 4 time s per year 02/28/2022 services? Do you belong to any clubs or organizations Yes 02/28/2022 such as mu-ism groups, unions, fraternal or athletic groups, or [...] place to sleep or slept in a fpc (including now)? Education Answer Date Recorded What is the highest level of school you have completed or th e Doctorate 01/06/2020 highest degree you have received? Sex Assigned at Date Recorded Female 01/06/2020 8:22 PM CDT documented as of this encounter Plan of Treatment Not on filedocumented as of this encounter Procedures Procedure Name Priority Date/Time Associated Comments Diagnosis OPHTHALMOLOGY IMAGE Routine 09/10/2021 11:13 Resu lts for this EXAM AM CDT procedure are i n the results section. documented in this encounter Results Eye right eyelid margin 106-Ophthalmology Image Exam (09/10/2021 11:13 AM CDT) Specimen (Source) Anatomical Collection Method Collection Time Re ceived Time Location / / Volume Laterality 09/10/2021 11:11 AM CDT Narrative [facility] - 09/10/2021 11:13 AM CDT This order has been created and [...]
== END 2022-04-22 15:40 | disposition home or self-care (01) ==
LOC: MAMMO 15:40
PROVIDERS: PCP Internal Medicine; Visit Provider Internal Medicine
DX: Z12.31 Encounter for screening mammogram for malignant neoplasm of breast (principal); R92.2 Inconclusive mammogram
CPT/HCPCS: 77063; 77067

== ENCOUNTER 2023-02-13 08:03 | Outpatient (CLI) | payer BC, SELFPAY | END 2023-02-13 08:04 | disposition home or self-care (01) | LOC: NFLDREF 10:29 | PROVIDERS: PCP Internal Medicine; Referring Provider Internal Medicine; Visit Provider Internal Medicine | DX: E78.5 Hyperlipidemia, unspecified (principal); M81.0 Age-related osteoporosis without current pathological fracture | CPT/HCPCS: 80061; 82306 ==

== ENCOUNTER 2023-04-24 12:57 | Outpatient (CLI) | payer BC, SELFPAY ==
--- NOTE | 2023-04-24 13:00 | CRLHL7_ITS ---
For Patients: As a result of the Cures Act, medical imaging exams and procedure reports are released immediately into your electronic medical record. You may view this report before your referring provider. If you have questions, please contact your health care provider. BILATERAL SCREENING MAMMOGRAM WITH COMPUTER-AIDED DETECTION AND TOMOSYNTHESIS TECHNIQUE: CC and MLO views were obtained. These mammographic images have been obtained using full-field digital technique. These mammographic images were interpreted with the benefit of computer-aided detection. Breast tomosynthesis was used in this interpretation. COMPARISON FILM: 04/22/22, 04/19/21, 06/01/20. FINDINGS: The breasts are heterogeneously dense, which may obscure small masses. IMPRESSION: There is no radiographic evidence for malignancy. ASSESSMENT: BI-RADS Category 1: Negative RECOMMENDATION: Routine screening mammogram in 1 year. A lay language report of this examination will be provided to the patient. JONH MADSEN M.D. Diagnostic Radiologist [email or web address] KATERINA/edouard Transcribed: 04/27/2023, 3:[address]/Dictated by: Jonh Madsen MD @ 04/27/2023 9:12:00 AM (Electronically Signed)
== END 2023-04-24 12:58 | disposition home or self-care (01) ==
LOC: MAMMO 12:57
PROVIDERS: PCP Internal Medicine; Visit Provider Internal Medicine
DX: Z12.31 Encounter for screening mammogram for malignant neoplasm of breast (principal); R92.2 Inconclusive mammogram
CPT/HCPCS: 77063; 77067

== ENCOUNTER 2023-06-10 07:35 | Outpatient (CLI) | payer BC, SELFPAY | END 2023-06-10 07:36 | disposition home or self-care (01) | LOC: NFLDREF 06-11 11:18 | PROVIDERS: PCP Internal Medicine; Referring Provider Internal Medicine; Visit Provider Internal Medicine | DX: E78.5 Hyperlipidemia, unspecified (principal) | CPT/HCPCS: 80061 ==

== ENCOUNTER 2024-02-23 07:45 | Outpatient (CLI) | payer BC, SELFPAY ==
--- OUTSIDE RECORDS SUMMARY | 2024-02-26 06:07 | XMS_ITS | Clinical Summary ---
Author Organization [facility] Address [place], [place] [address] Care Team Providers Care Snuff Box Finisher Name Role Phone Clinic, No Pcp Or Primary Care Provider Unavaila ble Allergies Active Allergy Reactions Criticality Noted Date Comments Ampicillin Hives 03/06/2021 Sulfa (Sulfonamide Antibiotics) Other - Describe In Comment Field 03/06/2021 Severe adverse reaction Medications Medication Sig Dispensed Refills Start Date End Date Status simvastatin (ZOCOR) 10 mg tablet Take 10 mg by mouth at bedtime. 01/24/2021 Active alendronate (FOSAMAX) 70 mg tablet Take 1 Tablet by mouth once a week in the morning. 03/05/2021 Active Family History Medical History Relation Name Comments Other Father neurological di sorder Hyperlipidemia Mother Hypertension Mother Relation Name Status Comments Father Alive Mother Social History Tobacco Use Types Packs/Day Years Used Date Smoking Tobacco: Never Smokeless Tobacco: Never Tobacco Cessation:Counseling Given: Yes Sex and Gender Information Value Date Recorded Sex Assigned at Not on file Gender Identity Not on file Sexual Orientation Not on file Obstetrics History Last Filed Vital Signs Vital Sign Reading Time Taken Comments Blood Pressure 98/65 03/06/2021 1:41 PM CDT tow er Pulse 80 03/06/2021 1:41 PM CDT Temperature - - Respiratory Rate - - Oxygen Saturation 97% 03/06/2021 1:41 PM CDT Inhaled Oxygen Concentration - - Weight 56.2 kg (124 lb) 03/06/2021 1:41 PM CDT Height - - Body Mass Index - - Plan of Treatment Health Maintenance Due Date Last Done Comments Tdap 01/21/1968 Depression screening for age 12+ 1969 BMI (ht and wt on same day) for age 18+ 1975 Hepatitis C screening for age 18-79 1975 Tetanus booster 1977 Colonoscopy through age 75 2002 Lipids for age 45-75 2002 Mammogram for age 45-75 2002 Zoster (shingles) series for age 50+ (1 of 2) 01/21/20 07 DEXA/DXA scan for age 65+ 2022 Pneumococcal series for age 65+ (1 of 1 - PCV) 022 COVID-19 vaccine series (1 - 2022- season) 3 Influenza for age 65+ 02/28/2024 Care Teams Snuff Box Finisher Relationship Specialty Start Date End Date Clinic, No Pcp Or . PCP - General 02/04/21
== END 2024-02-23 07:46 | disposition home or self-care (01) ==
LOC: NFLDREF 02-26 06:05
PROVIDERS: PCP Internal Medicine; Referring Provider Internal Medicine; Visit Provider Internal Medicine
DX: E78.5 Hyperlipidemia, unspecified (principal); M81.0 Age-related osteoporosis without current pathological fracture
CPT/HCPCS: 80061; 82306

== ENCOUNTER 2024-05-12 13:54 | Outpatient (CLI) | payer BC, SELFPAY ==
--- OUTSIDE RECORDS SUMMARY | 2024-05-12 13:58 | XMS_ITS | Clinical Summary ---
Author Organization [facility] Address [place], [place] [address] Care Team Providers Care Agriscience Technology Instructor Name Role Phone Clinic, No Pcp Or [...] 1 - PCV) 022 COVID-19 vaccine series ( - 2023- season) 4 Influenza for age 65+ 02/28/2024 Care Teams Agriscience Technology Instructor Relationship Specialty Start Date End Date Clinic, No Pcp Or . PCP - General 02/04/21
--- NOTE | 2024-05-12 14:00 | CRLHL7_ITS ---
For Patients: As a result of the Century Cures Act, medical imaging exams and procedure reports are released immediately into your electronic medical record. You may view this report before your referring provider. If you have questions, please contact your health care provider. DXA BONE MINERAL DENSITY STUDY Current height (in): 66. Weight (lb): 130. Menopause age: 54. Ethnicity: White. 1. Have you had a previous hip or vertebral fracture? No. 2. Have you had any fractures during your adult life which did not result from significant trauma (e.g., auto accident)? No. 3. Did either of your parents have a hip fracture? No. 4. Do you smoke? No. 5. Have you ever taken Glucocorticoids? No. 6. Do you have rheumatoid arthritis? No. 7. Do you have secondary osteoporosis? No. 8. Do you drink 3 or more alcoholic drinks per day? No. 9. Are you being treated for osteoporosis? Yes. 10. Have you ever taken any of the following medications: Actonel, Evista, Fosamax, Miacalcin, Reclast, Boniva, Forteo, HRT (i.e. estrogen/hormone therapy), Protelos, Prolia, Vitamin D, Calcium, other ??? please specify. ANSWER: Yes, Fosamax, vitamin D, calcium. 11. Do you have any of the following medical conditions: Anorexia or bulimia, asthma or emphysema, end stage renal disease, hyperparathyroidism, any seizure disorders, cancer, inflammatory bowel diseases, hysterectomy, other ??? please specify. ANSWER: Yes, cancer. 12. What was your maximum height (inches)? 67.5. 13. Do you perform weight bearing exercise regularly? Yes. 14. Do you regularly consume dairy products? Yes. 15. Do you drink caffeinated beverages? Yes. 16. At what age did your period start? 15. 17. Are you premenopausal? No. 18. How many full term pregnancies have you had? 1. 19. Have you ever missed your period for more than 6 months in a row (not including or menopause)? No. TECHNIQUE: Bone mineral density study was performed using the [employer]. FINDINGS: The results of the study expressed as bone mineral density (BMD) are as follows: Lumbar spine L1 to L4: BMD: 0.679 g/cm2. T-score: -3.3. Z-score: -1.4. Neck Left: BMD: 0.609 g/cm2. T-score: -2.2. Z-score: -0.5. Right: BMD: 0.589 g/cm2. T-score: -2.3. Z-score: -0.7. Total Left: BMD: 0.769 g/cm2. T-score: -1.4. Z-score: -0.1. Right: BMD: 0.792 g/cm2. T-score: -1.2. Z-score: 0.1. IMPRESSION: Osteoporosis. *Comparison exams done prior to 11/2019 were performed on different unit, [employer]. COMPARISON: Compared with scan of 02/27/1021, the bone mineral density has increased by 0.3 percent at the spine and increased by 3.3 percent at the hip. Compared with scan of 02/23/2017, the bone mineral density has decreased by 4.6 percent at the spine and increased by 0.9 percent at the hip. Jonh Conn M.D. Diagnostic Radiologist [email or web address] CALE/Dictated by: Jonh Conn MD @ 05/13/2024 1:20:00 PM (Electronically Signed)
--- NOTE | 2024-05-12 14:40 | CRLHL7_ITS ---
For Patients: As a result of the Century Cures Act, medical imaging exams and procedure reports are released immediately into your electronic medical record. You may view this report before your referring provider. If you have questions, please contact your health care provider. BILATERAL SCREENING MAMMOGRAM WITH COMPUTER-AIDED DETECTION AND TOMOSYNTHESIS TECHNIQUE: CC and MLO views were obtained. These mammographic images have been obtained using full-field digital technique. These mammographic images were interpreted with the benefit of computer-aided detection. Breast Tomosynthesis was used in this interpretation. COMPARISON FILM: 04/24/23, 04/22/22, 04/19/21. FINDINGS: The breasts are heterogeneously dense, which may obscure small masses. IMPRESSION: There is no radiographic evidence for malignancy. ASSESSMENT: BI-RADS Category 1: Negative RECOMMENDATION: Routine screening mammogram in 1 year. A lay language report of this examination will be provided to the patient. Jonh Conn M.D. Diagnostic Radiologist [email or web address] SP/Dictated by: Jonh Conn MD @ 05/13/2024 12:40:00 PM (Electronically Signed)
== END 2024-05-12 13:55 | disposition home or self-care (01) ==
LOC: RAD 13:56
PROVIDERS: PCP Internal Medicine; Visit Provider Internal Medicine
DX: Z12.31 Encounter for screening mammogram for malignant neoplasm of breast (principal); R92.333 Mammographic heterogeneous density, bilateral breasts; M81.0 Age-related osteoporosis without current pathological fracture
CPT/HCPCS: 77063; 77067; 77080

== ENCOUNTER 2025-02-28 07:50 | Outpatient (CLI) | payer BC, SELFPAY | END 2025-02-28 07:51 | disposition home or self-care (01) | LOC: NFLDREF 15:05 | PROVIDERS: PCP Internal Medicine; Referring Provider Internal Medicine; Visit Provider Internal Medicine | DX: E78.5 Hyperlipidemia, unspecified (principal); M81.0 Age-related osteoporosis without current pathological fracture | CPT/HCPCS: 80048; 80061; 82306 ==

== ENCOUNTER 2025-05-23 15:54 | Outpatient (CLI) | payer BC, SELFPAY ==
--- NOTE | 2025-05-23 16:20 | CRLHL7_ITS ---
For Patients: As a result of the Century Cures Act, medical imaging exams and procedure reports are released immediately into your electronic medical record. You may view this report before your referring provider. If you have questions, please contact your health care provider. BILATERAL DIGITAL SCREENING MAMMOGRAM WITH COMPUTER-AIDED DETECTION AND TOMOSYNTHESIS CLINICAL HISTORY: Routine screening exam. COMPARISON: Mammogram 05/12/2024 and 04/24/2023. TECHNIQUE: Digital mammogram in CC and MLO projections including computer-aided detection (CAD) and tomosynthesis. BREAST COMPOSITION: The breasts are heterogeneously dense, which may obscure small masses. FINDINGS: RIGHT Breast: There is an asymmetry in the superior breast, middle depth. LEFT Breast: No suspicious findings. IMPRESSION: RIGHT breast asymmetry. RECOMMENDATIONS: Additional mammographic views of the RIGHT breast including 90-degree lateral and spot compression MLO. RIGHT breast ultrasound may also be required. A member of the breast care team will contact the patient to arrange for this additional study. BI-RADS Category 0: Incomplete: Need Additional Imaging Evaluation Dictated by Nathaly Guevara MD @ 05/24/2025 8:54:59 PM/[facility] bM/Dictated by: Nathaly Guevara MD @ 05/24/2025 8:55:00 PM (Electronically Signed)
== END 2025-05-23 15:55 | disposition home or self-care (01) ==
LOC: MAMMO 15:54
PROVIDERS: PCP Internal Medicine; Visit Provider Internal Medicine
DX: Z12.31 Encounter for screening mammogram for malignant neoplasm of breast (principal); N63.10 Unspecified lump in the right breast, unspecified quadrant; R92.333 Mammographic heterogeneous density, bilateral breasts
CPT/HCPCS: 77063; 77067

== ENCOUNTER 2025-06-02 09:34 | Outpatient (CLI) | payer BC, SELFPAY ==
--- NOTE | 2025-06-02 09:45 | CRLHL7_ITS ---
For Patients: As a result of the Cures Act, medical imaging exams and procedure reports are released immediately into your electronic medical record. You may view this report before your referring provider. If you have questions, please contact your health care provider. DIGITAL DIAGNOSTIC RIGHT MAMMOGRAM USING TOMOSYNTHESIS RIGHT BREAST ULTRASOUND CLINICAL HISTORY: RIGHT breast mass/asymmetry. COMPARISON: 05/23/2025, 05/12/2024, 04/24/2023. TECHNIQUE: Digital RIGHT mammogram in two projections. Tomosynthesis was used in this interpretation. Real-time ultrasound imaging of RIGHT breast with imaging documentation. BREAST COMPOSITION: The breast is heterogeneously dense, which may obscure small masses. FINDINGS: Additional mammogram images RIGHT breast submitted. Decreased conspicuity of previously noted asymmetric density. No architectural distortion. No suspicious calcifications. Targeted RIGHT breast ultrasound performed at 12 o`clock 5 cm from the nipple. Normal fibroglandular tissue. No fibrocystic change or mass. IMPRESSION: No evidence of malignancy. RECOMMENDATIONS: Routine screening mammography. A lay language report of this examination will be provided to the patient. BI-RADS Category 2: Benign Dictated by Jonh Conn MD @ 06/02/2025 10:42:12 AM jj/Dictated by: Jonh Conn MD @ 06/02/2025 10:42:00 AM (Electronically Signed)
--- NOTE | 2025-06-02 10:15 | CRLHL7_ITS ---
For Patients: As a result of the Cures Act, medical imaging exams and procedure reports are released immediately into your electronic medical record. You may view this report before your referring provider. If you have questions, please contact your health care provider. SEE DIGITAL DIAGNOSTIC RIGHT MAMMOGRAM PERFORMED SAME DAY CRL:juan ramon delatorre/Dictated by: Jonh Conn MD @ 06/02/2025 10:40:00 AM (Electronically Signed)
== END 2025-06-02 09:35 | disposition home or self-care (01) ==
LOC: MAMMO 09:34
PROVIDERS: PCP Internal Medicine; Visit Provider Internal Medicine
DX: N63.10 Unspecified lump in the right breast, unspecified quadrant (principal); R92.8 Other abnormal and inconclusive findings on diagnostic imaging of breast
CPT/HCPCS: 76642; 77065; G0279